=== PATIENT | male | born 1975 | race Caucasian/White ===

== ENCOUNTER 2017-12-19 21:41 | Inpatient (IN) | payer MEDICAID ==
[2017-12-20] MEDS: ONDANSETRON 4 MG INJ IV (01:03)
[2017-12-20] MEDS: SOD CHLORIDE 0.9% 1,000 ML IV ×3 (01:03→19:54)
[2017-12-20] MEDS: morphine 4 MG/ML VIAL IV ×2 (01:04→05:23)
[2017-12-20 01:08] LABS: WHITE BLOOD COUNT 10.5 10^3/ul (4.8-10.8)
[2017-12-20 01:08] LABS: ADD MAN DIFF? NO; BASOPHILS % 0.2 % (0.0-2.0); EOSINOPHILS # 0.2 10^3/ul (0.0-0.5); EOSINOPHILS % 1.6 % (0.0-7.0); HEMATOCRIT 47.5 % (42.0-52.0); HEMOGLOBIN 16.4 g/dl (14.0-18.0); LYMPHOCYTES # 3.1 10^3/ul (0.8-2.9); LYMPHOCYTES % 29.7 % (15.0-51.0); MEAN CORPUSCULAR HEMOGLOBIN 30.5 pg (29.0-33.0); MEAN CORPUSCULAR HGB CONC 34.5 g/dl (32.0-37.0); MEAN CORPUSCULAR VOLUME 88.5 fl (82.0-101.0); MONOCYTE # 0.8 10^3/ul (0.3-0.9); MONOCYTES % 7.5 % (0.0-11.0); NEUTROPHIL # 6.4 10^3/ul (1.6-7.5); NEUTROPHILS % 60.5 % (39.0-77.0); PLATELET COUNT 255 10^3/UL (140-415); RED BLOOD COUNT 5.37 10^6/ul (4.70-6.10); RED CELL DISTRIBUTION WIDTH 12.4 % (11.5-14.5)
[2017-12-20 01:16] LABS: ALANINE AMINOTRANSFERASE 48 IU/L (13-69); ALBUMIN 4.1 g/dl (3.3-4.9); ALBUMIN/GLOBULIN RATIO 1.05; ALKALINE PHOSPHATASE 105 IU/L (42-121); ANION GAP 14 (8-16); ASPARTATE AMINO TRANSFERASE 27 IU/L (15-46); BILIRUBIN,INDIRECT 0.5 mg/dl (0-1.1); BILIRUBIN,TOTAL 0.5 mg/dl (0.2-1.3); BLOOD UREA NITROGEN 18 mg/dl (7-20); CALCIUM 9.5 mg/dl (8.4-10.2); CARBON DIOXIDE 23 mmol/L (21-31); CHLORIDE 106 mmol/L (97-110); CREATININE 0.76 mg/dl (0.61-1.24); GLUCOSE 101 mg/dl (70-220); LIPASE 32 U/L (23-300); POTASSIUM 4.1 mmol/L (3.5-5.1); SODIUM 139 mmol/L (135-144)
[2017-12-20 03:04] LABS: URINE BLOOD (Dip) POC 2+ (NEGATIVE); URINE GLUCOSE (Dip) POC Negative (NEGATIVE); URINE KETONES (Dip) POC Negative (NEGATIVE); URINE LEUKOCYTE EST (Dip) POC Negative (NEGATIVE); URINE NITRITE (Dip) POC Negative (NEGATIVE); URINE TOTAL PROTEIN POC Negative (NEGATIVE)
[2017-12-20 03:04] LABS: URINE PH (Dip) POC 5.5 (5.0-8.5)
[2017-12-20 03:15] LABS: ADD UMIC YES; UR ASCORBIC ACID NEGATIVE (NEGATIVE); UR BILIRUBIN (Dip) NEGATIVE (NEGATIVE); UR BLOOD (Dip) 3+ mg/dL (NEGATIVE); UR CLARITY CLEAR (CLEAR); UR COLOR YELLOW (YELLOW); UR GLUCOSE (Dip) NEGATIVE (NEGATIVE); UR KETONES (Dip) NEGATIVE (NEGATIVE); UR LEUKOCYTE ESTERASE (Dip) NEGATIVE Leu/ul (NEGATIVE); UR NITRITE (Dip) NEGATIVE (NEGATIVE); UR RBC 3 /HPF (0-5); UR SPECIFIC GRAVITY (Dip) 1.014 (1.003-1.030); UR TOTAL PROTEIN (Dip) NEGATIVE (NEGATIVE); UR UROBILINOGEN (Dip) NEGATIVE (NEGATIVE); UR WBC 1 /HPF (0-5)
[2017-12-20] MEDS: morphine 10 MG INJ IV (03:21)
[2017-12-20] MEDS ORDERED: MAGNESIUM HYDROXIDE 30ML CUP PO (10:00)
[2017-12-20] MEDS ORDERED: ONDANSETRON 4 MG INJ IV ×2 (10:00→19:30)
[2017-12-20] MEDS ORDERED: HYDROCODONE/APAP (5/325) TAB PO ×2 (10:00→19:00)
[2017-12-20] MEDS ORDERED: BISACODYL (EC) 5 MG TAB PO (10:00)
[2017-12-20] MEDS ORDERED: NACL 0.9% 3 ML SYG IV (10:00)
[2017-12-20] MEDS ORDERED: ACETAMINOPHEN 650 MG SUPP PR (10:00)
[2017-12-20] MEDS ORDERED: ACETAMINOPHEN 325 MG TAB PO (10:00)
[2017-12-20] MEDS: morphine 2 MG INJ IV ×2 (10:53→20:34)
[2017-12-20 11:26] LABS: INR 0.93; PROTIME 12.5 Sec (11.9-14.9)
[2017-12-20 11:27] LABS: PARTIAL THROMBOPLASTIN TIME 30.9 Sec (23.0-35.0)
[2017-12-20] MEDS ORDERED: MIDAZOLAM 1 MG/ML 2 ML INJ (18:03)
[2017-12-20] MEDS: CEFAZOLIN 1 GM INJ (18:20)
[2017-12-20] MEDS: LIDOCAINE 1%/EPI 30 ML INJ (18:31)
[2017-12-20] MEDS: BUPIVACAINE 0.25% (MPF) 30 ML INJ (18:31)
[2017-12-20] MEDS ORDERED: ONDANSETRON 4 MG INJ (18:55)
[2017-12-20] MEDS ORDERED: LIDOCAINE 2% (SDV) 5 ML INJ (19:00)
[2017-12-20] MEDS ORDERED: ROCURONIUM 50 MG INJ (19:00)
[2017-12-20] MEDS ORDERED: PROPOFOL 20 ML (19:00)
[2017-12-20] MEDS ORDERED: NEOSTIGMINE 3 MG/3 ML SYRINGE (19:00)
[2017-12-20] MEDS ORDERED: GLYCOPYRROLATE 0.4 MG INJ (19:00)
[2017-12-20] MEDS ORDERED: DIPHENHYDRAMINE 50 MG INJ IV (19:30)
[2017-12-20] MEDS ORDERED: METOCLOPRAMIDE 10 MG INJ IV (19:30)
[2017-12-20] MEDS ORDERED: MEPERIDINE 25 MG INJ IV (19:30)
[2017-12-20] MEDS ORDERED: morphine (1 MG/ML) 10ML SYRINGE IV (19:30)
[2017-12-20] MEDS: FENTAnyl 50 MCG/ML VIAL IV ×2 (19:36→19:42)
[2017-12-20] MEDS: FAMOTIDINE 20 MG INJ IV (20:34)
[2017-12-21] MEDS: SOD CHLORIDE 0.9% 1,000 ML IV ×2 (01:06→11:32)
[2017-12-21] MEDS: morphine 2 MG INJ IV ×3 (01:15→13:46)
[2017-12-21 05:07] LABS: ADD MAN DIFF? NO
[2017-12-21 05:09] LABS: BASOPHILS % 0.3 % (0.0-2.0); EOSINOPHILS # 0.1 10^3/ul (0.0-0.5); EOSINOPHILS % 1.1 % (0.0-7.0); HEMATOCRIT 44.1 % (42.0-52.0); HEMOGLOBIN 14.8 g/dl (14.0-18.0); LYMPHOCYTES # 2.8 10^3/ul (0.8-2.9); LYMPHOCYTES % 25.4 % (15.0-51.0); MEAN CORPUSCULAR HEMOGLOBIN 29.8 pg (29.0-33.0); MEAN CORPUSCULAR HGB CONC 33.6 g/dl (32.0-37.0); MEAN CORPUSCULAR VOLUME 88.9 fl (82.0-101.0); MEAN PLATELET VOLUME 9.2 fl (7.4-10.4); MONOCYTE # 0.7 10^3/ul (0.3-0.9); MONOCYTES % 6.7 % (0.0-11.0); NEUTROPHIL # 7.2 10^3/ul (1.6-7.5); NEUTROPHILS % 66.2 % (39.0-77.0); PLATELET COUNT 230 10^3/UL (140-415); RED BLOOD COUNT 4.96 10^6/ul (4.70-6.10); RED CELL DISTRIBUTION WIDTH 12.4 % (11.5-14.5)
[2017-12-21 05:09] LABS: WHITE BLOOD COUNT 10.9 10^3/ul (4.8-10.8)
[2017-12-21 05:41] LABS: ALANINE AMINOTRANSFERASE 38 IU/L (13-69); ALBUMIN 3.6 g/dl (3.3-4.9); ALKALINE PHOSPHATASE 86 IU/L (42-121); ANION GAP 9 (8-16); ASPARTATE AMINO TRANSFERASE 31 IU/L (15-46); BILIRUBIN,INDIRECT 0.6 mg/dl (0-1.1); BILIRUBIN,TOTAL 0.6 mg/dl (0.2-1.3); BLOOD UREA NITROGEN 12 mg/dl (7-20); CALCIUM 8.6 mg/dl (8.4-10.2); CARBON DIOXIDE 26 mmol/L (21-31); CHLORIDE 107 mmol/L (97-110); CREATININE 0.68 mg/dl (0.61-1.24); GLUCOSE 91 mg/dl (70-220); POTASSIUM 4.2 mmol/L (3.5-5.1); SODIUM 138 mmol/L (135-144); TOTAL PROTEIN 6.6 g/dl (6.1-8.1)
[2017-12-21] MEDS: FAMOTIDINE 20 MG INJ IV (08:16)
[2017-12-21 15:09] LABS: HEMOGLOBIN A1C 5.4 % (0-5.9)
[2017-12-21] MEDS ORDERED: DOCUSATE SODIUM 100 MG CAP PO (21:00)
== END 2017-12-21 15:30 | disposition home or self-care (01) | DRG 354 ==
LOC: E/R 21:41 → PP2 12-20 04:56
PROC: 0WQF4ZZ Repair Abdominal Wall, Percutaneous Endoscopic Approach (ICD-10-PCS; principal; 2017-12-20 16:30)
DX: K43.6 Other and unspecified ventral hernia with obstruction, without gangrene (principal); L03.311 Cellulitis of abdominal wall; E66.9 Obesity, unspecified; Z68.29 Body mass index [BMI] 29.0-29.9, adult; F17.200 Nicotine dependence, unspecified, uncomplicated
CPT/HCPCS: 36415; 74176; 80053; 81001; 81003; 83036; 83690; 84443; 85025; 85610; 85730; 88302; 93005; 96374; 96375; 96376; 99285-25

== ENCOUNTER 2018-11-30 17:32 | Emergency (ER) | payer MEDICAID ==
[2018-11-30] MEDS: IBUPROFEN 600 MG TAB PO (19:12)
[2018-11-30] MEDS: DIPHTH/TET/ACEL PERTUSS (ADULT) 0.5 ML VIAL IM* (19:13)
== END 2018-11-30 19:54 | disposition home or self-care (01) ==
LOC: FTE 17:32
DX: S91.201A Unspecified open wound of right great toe with damage to nail, initial encounter (principal); F17.210 Nicotine dependence, cigarettes, uncomplicated; W22.8XXA Striking against or struck by other objects, initial encounter; Y92.9 Unspecified place or not applicable; Z23 Encounter for immunization
CPT/HCPCS: 73660; 90471; 90715; 99283-25